=== PATIENT | female | born 1965 | race Caucasian/White ===

== ENCOUNTER 2021-09-24 17:14 | Outpatient (CLI) | payer OTHER, SELFPAY ==
[2021-09-30 16:55] LABS: HPV APTIMA, High Risk Negative (Negative)
== END 2021-09-24 23:59 | disposition home or self-care (01) ==
LOC: OPBI 17:14
PROVIDERS: Visit Provider Nurse Practitioner Women's Health
DX: Z12.4 Encounter for screening for malignant neoplasm of cervix (principal)
CPT/HCPCS: 87624; 88175; G0145